=== PATIENT | male | born 1980 | race Caucasian/White ===

== ENCOUNTER → 2023-07-10 13:59 | Outpatient (REF) | payer BC, SELFPAY | LOC: RAD 13:59 | PROVIDERS: ATTENDING PHYSICIAN Surgery; FAMILY PHYSICIAN Family Medicine | DX: N20.0 Calculus of kidney (principal) | CPT/HCPCS: 74018 ==

== ENCOUNTER 2024-07-19 23:24 | Inpatient (IN) | payer OTHER, SELFPAY ==
[2024-07-19 14:52] VITALS: BP 142/86
[2024-07-19 15:22] LABS: % Basophils 0.5 % (0-2); % Eosinophils 1.6 % (0-6); % Immature Granulocytes 0.3 % (0-0.5); % Lymphocytes 10.4 % (20.5-51.1); % Monocytes 6.5 % (1.7-9.3); % Neutrophils 80.7 % (42.2-75.2); Absolute Basophils 0.1 10^3/uL (0-0.2); Absolute Eosinophils 0.3 10^3/uL (0-0.7); Absolute Immature Granulocytes 0.1 10^3/uL (0-0.05); Absolute Lymphocytes 1.6 10^3/uL (1.2-3.4); Absolute Neutrophils 12.4 10^3/uL (1.4-6.5); Hematocrit 46.8 % (39.0-52.0); Hemoglobin 15.9 g/dL (13.0-18.0); Mean Corpuscular Hgb 30.9 pg (27.0-31.0); Mean Corpuscular Volume 91.1 fL (80.0-94.0); Mean Platelet Volume 11.1 fL (7.4-10.4); Nucleated Red Blood Cells % 0 % (-); Platelet Count 384 10^3/uL (130-400); Red Blood Cell Count 5.14 10^6/uL (4.70-6.10); Red Cell Dist. Width 12.1 % (11.5-14.5); White Blood Cell Count 15.4 10^3/uL (4.8-10.8)
[2024-07-19 15:35] LABS: ALT (SGPT) 24 U/L (0-50); AST (SGOT) 26 U/L (17-59); Albumin 4.6 g/dl (3.5-5.0); Alkaline Phosphatase 65 U/L (38-126); Blood Urea Nitrogen 6 mg/dl (9-20); Calcium 10.2 mg/dl (8.4-10.2); Carbon Dioxide 25 mmol/L (22-30); Chloride 102 mmol/L (98-107); Glucose 126 mg/dl (70-99); Potassium 4.2 mmol/L (3.5-5.1); Sodium 138 mmol/L (135-145); Total Bilirubin 0.7 mg/dl (0.2-1.3); eGFR > 60.00
[2024-07-19 15:37] LABS: Lipase 580 U/L (23-300)
[2024-07-19 17:58] VITALS: BP 123/79
--- NOTE | 2024-07-19 19:29 | ED.GENMED ---
History of Present Illness
General
Chief Complaint: Abdominal Symptoms
Source: patient
Exam Limitations: none
Time Seen by Provider: 07/19/24 18:22
History of Present Illness
History of Present Illness:
43-year-old male with complaints of abdominal pain mostly left lower quadrant with watery diarrhea mucousy stools and occasionally bloody stools. Outpatient stool culture O&P showed a nonserious parasite that his physician felt was unlikely to be
an issue. He was however started on metronidazole. He is scheduled for colonoscopy next week. Symptoms have progressed however. No recent antibiotics.
Past History
Past History
ED Past Medical History: HTN, Hypercholesterolemia, IDDM and Other (Microscopic colitis)
ED Past Surgical History: None
Review of Systems
Review of Systems
All Other Systems: Not applicable
Constitutional: Denies fever or chills
: Reports no symptoms
Phy Exam
Physical Exam
Physical Exam:
GENERAL: Alert and oriented in no apparent distress
EYE: Orbits normal.
NECK: Supple
ENT: Pharynx without erythema
CARDIAC: Regular rate and rhythm without any obvious murmurs.
LUNGS: Clear breath sounds,normal
ABDOMEN: Soft, mild reproducible left lower quadrant tenderness. No rebound or guarding no mass or hernia
NEUROLOGICAL: Alert and oriented , grossly non-focal
SKIN: Warm and dry, no rash or lesion, no discoloration, skin intact.
MUSCULOSKELETAL: No edema,no deformity.Good color
PSYCH: Normal and appropriate interaction.
Course
Orders/Labs/Results
Orders:
Orders
07/19/24 15:03
Complete Blood Count/With Diff Urgent
Comprehensive Metabolic Panel Urgent
Lipase Urgent
07/19/24 19:24
CT Abd/Pel (IV only)-DH only Urgent
Comment:
Reason For Exam: llq pain. bloody stool
IV Insert/Care/Rem.- Treatment PRN
0.9% Sodium Chloride 1000 ml [Nss] 1,000 ml IV BOLUS
07/19/24 19:50
Ova & Parasites Giardia/Crypto AG [Giardia/Cryptosporidium Ag] Urgent
MARQUIS Source: Feces/Stool
Specimen Description:
Date Specimen was Collected: 07/19/24
Time Specimen was Collected: 19:44
STOOL [C difficile Antigen & Toxins] Urgent
MARQU[facility] Source: Feces/Stool
Specimen Description:
Date Specimen was Collected: 07/19/24
Time Specimen was Collected: 19:44
Stool Culture Urgent
MARQU[facility] Source: Feces/Stool
Specimen Description:
Date Specimen was Collected: 07/19/24
Time Specimen was Collected: 19:44
07/19/24 22:06
Zosyn 3.375 grams IVPB NOW Piperacillin/Tazo 3.375 Gram [Zosyn] 3.375 gram in 50 ml IV NOW
Abnormal Lab Results
07/19/24
15:03
WBC 15.4 H 10^3/uL
(4.8-10.8)
MPV 11.1 H fL
(7.4-10.4)
Abs Immat Gran (auto) 0.1 H 10^3/uL
(0-0.05)
Absolute Neuts (auto) 12.4 H 10^3/uL
(1.4-6.5)
Absolute Monos (auto) 1.0 H 10^3/uL
(0.1-0.6)
Neutrophils % 80.7 H %
(42.2-75.2)
Lymphocytes % 10.4 L %
(20.5-51.1)
BUN 6 L mg/dl
(9-20)
Glucose 126 H mg/dl
(70-99)
Lipase 580 H U/L
(23-300)
07/19/24 15:03
07/19/24 15:03
Vital Signs
Initial and Last Documented VS:
Initial Vital Signs
Temp Pulse Resp BP Pulse Ox
98.4 F 110 16 142/86 98
07/19/24 14:52 07/19/24 14:52 07/19/24 14:52 07/19/24 14:52 07/19/24 14:52
Last Documented Vital Signs
Temp Pulse Resp BP Pulse Ox
98.5 F 99 18 123/79 98
07/19/24 20:10 07/19/24 17:58 07/19/24 20:10 07/19/24 17:58 07/19/24 17:58
MDM/Problems Addressed
Differential Diagnosis Includes:
Patient describing colitis. Workup in progress. Will resend stool and stool O&P. CT scan pending.
*Radiology
Radiology exam reviewed: radiology read reviewed (Moderate colitis)
*Pulse Oximetry
Patient hypoxic: no
*Critical Care Note
Total Time (30-74mins, 75-104mins- exclusive of procedures): Not Applicable
Update Note
Update Note:
Copy of CT report given to patient
Moderate diffuse colitis. Not responding to Flagyl as an outpatient. Between pain discomfort white count diffuse colitis will admit. Discussed with GI and hospitalist
ED Attending Note
-
Portions of this chart may have been created with voice recognition software.� Occasional wrong word or��sound alike� substitutions may have occurred due to the inherent limitations of voice recognition software.
Discharge Plan
Departure
Patient Disposition: Admit
Date of Disposition: 07/19/24
Time of Disposition: 22:07
Presentation/result/management discussed w/ accepting /: Bala
Discharge Problem:
Moderate colitis, Bloody stools
Referrals:
Bobby Williamson PA [Family Provider] -
Interventions
Interventions:
*Risk Screen - Suicide Last Done: 07/19/24 14:52
*Neglect/Abuse Screening Last Done: 07/19/24 14:52
[facility]-Plfpx[facility] Assessment Last Done: 07/19/24 19:55
Discharge Date and Time
Print Language: BULGARIAN
[2024-07-19] MEDS: NSS 1000 IV (19:48)
[2024-07-19] MEDS: ZOSYN 50 IV (22:28)
[2024-07-19 22:30] VITALS: BP 112/84
[2024-07-19 22:31] VITALS: BMI 25.9
[2024-07-19 22:32] VITALS: BP 112/84
--- NOTE | 2024-07-19 22:44 | HPS.HSE ---
Family Physician
-
Family Physician: SHEREE Michael
Chief Complaint
-
acute left lower quadrant pain with watery diarrhea
History of Present Illness
43M HX Microscopic colitis, IDDM, HTN, Hypercholesterolemia seen at ER:
- acute left lower quadrant pain with watery diarrhea
- mucous stools and occasionally bloody stools.
- Outpatient stool culture O&P showed a nonserious parasite that his physician felt was unlikely to be an issue.
- He was however started on metronidazole.
- He is scheduled for colonoscopy next week.
- Symptoms have progressed however.
- No recent antibiotics.
Medical History
Past Medical History
Past Medical History: Reports HTN, Hypercholesterolemia, IDDM and Other (Microscopic colitis)
Past Surgical History: Reports Other
Social History
Tobacco: Non-smoker
Alcohol: None
Family History
Family History: Not pertinent
Allergies / Home Medications
Allergies reflects when Allergies were last updated in [facility].
Home Medications with original date entered in [facility]
Allergy/Medication List:
Allergies
Allergy/AdvReac Type Severity Reaction Status Date / Time
No Known Allergies Allergy Verified 07/19/24 14:55
Review of Systems
-
Constitutional: Reports No Symptoms
EENT: Reports No Symptoms
Respiratory: Reports No Symptoms
Cardiac: Reports No Symptoms
Abdomen/GI: Reports See HPI, Abdominal Pain, Diarrhea and Bloody Stools
: Reports No Symptoms
Musculoskeletal: Reports No Symptoms
Skin: Reports No Symptoms
Neurological: Reports No Symptoms
Endocrine: Reports No Symptoms
Hematologic/Lymphatic: Reports No Symptoms
Psych: Reports No Symptoms
Physical Exam
Vital Signs
Vital Signs
Temp Pulse Resp BP Pulse Ox
98.5 F 94 18 112/84 96
07/19/24 20:10 07/19/24 22:32 07/19/24 22:32 07/19/24 22:32 07/19/24 22:32
Physical Exam
General: Well Developed, Well Nourished and No Apparent Distress
HEENT: NormoCephalic, Moist mucous membranes and Atraumatic
Respiratory: Clear
Cardiac: S1/S2 and Regular Rhythm; No Murmur or Rub
GI: Tender (RLQ )
Rectal: Deferred by Provider
Musculoskeletal: No Clubbing, No Cyanosis and No Edema
Skin: No Rash
Neuro: Nonfocal/grossly intact
Laboratory Results
-
07/19/24 15:03
07/19/24 15:03
Laboratory Results
Total Bilirubin 0.7 mg/dl (0.2-1.3) 07/19/24 15:03
AST 26 U/L (17-59) 07/19/24 15:03
ALT 24 U/L (0-50) 07/19/24 15:03
Alkaline Phosphatase 65 U/L (38-126) 07/19/24 15:03
Lipase 580 U/L (23-300) H 07/19/24 15:03
Data Reviewed
-
CT Scan: Report Reviewed by me
Lab Data: Labs Reviewed by me
Impression/Plan
-
Selected Entries
07/19/24
14:52
Temp 98.4 F
Pulse 110
Resp Rate 16
Blood pressure 142/86
SaO2 98
Oxygen Mode of Delivery Room air
Labs
07/19/24
15:03
WBC 15.4 H
BUN 6 L
Creatinine 0.7
eGFR > 60.00
Glucose 126 H
Lipase [address]/Pel (IV only)
- Moderate diffuse colonic wall thickening, contiguous involvement from the rectum through the inferior right colon. Findings are compatible with colitis. Main differential considerations of infectious colitis versus inflammatory bowel
disease/ulcerative colitis. Of note, this appears new compared to examination June 03, 2023.
- Prominent mesenteric lymph nodes, which are likely reactive.
- 7 mm calcification in the anterolateral left mid kidney, stable, and could represent a dystrophic parenchymal calcification versus a nephrolith. Small 1-2 mm nephrolith in the lower pole the right kidney.
- Focal area of increased density involving the superficial subcutaneous soft tissues of the right anterolateral upper pelvic wall, which appears stable from previous examination. Stability is reassuring that this is benign, possibly an area of
scarring or chronic inflammation. Please correlate with any clinical findings in this region and consider continued clinical follow-up.
NO PRIO hospitalist admission:
ASSESSMENT & PLAN
Pending Rx reconciliation
Colitis: infectious vs. IBD
Associated hematochezia: Hgb 15.9
Hemodynamically stable
HX Microscopic colitis
- Stool for C diff , Ova and parasites
- Clear diet
- Empiric IV Zosyn
- IV NS
- IV dilaudid PRN for mod - severe pain, hold for sedation
- GI consult
IDDM
- add ISS
- Pending Rx reconciliation
Benign HTN
- stable
- Pending Rx reconciliation
HLD
- c/w [facility] Med
DVT Px: SCD
Full code
IP MS
[2024-07-19 23:00] VITALS: BP 123/78
[2024-07-20] VITALS: BP 113/75
[2024-07-20] MEDS: MELATONIN 5 MG PO ×2 (00:07→22:01)
[2024-07-20] MEDS: NSS 1000 IV ×2 (00:08→12:51)
[2024-07-20] MEDS: ZOSYN 50 IV ×4 (04:53→21:48)
[2024-07-20 05:26] LABS: Hematocrit 40.3 % (39.0-52.0); Hemoglobin 13.6 g/dL (13.0-18.0); Mean Corp Hgb Conc. 33.7 g/dL (33.0-37.0); Mean Corpuscular Hgb 30.9 pg (27.0-31.0); Mean Corpuscular Volume 91.6 fL (80.0-94.0); Mean Platelet Volume 10.8 fL (7.4-10.4); Platelet Count 320 10^3/uL (130-400); Red Cell Dist. Width 12.1 % (11.5-14.5); White Blood Cell Count 10.9 10^3/uL (4.8-10.8)
[2024-07-20 05:45] LABS: Blood Urea Nitrogen 5 mg/dl (9-20); Carbon Dioxide 19 mmol/L (22-30); Chloride 103 mmol/L (98-107); Estimated Creatinine Clearance > 125 ml/min; Glucose 191 mg/dl (70-99); Potassium 4.2 mmol/L (3.5-5.1); Sodium 135 mmol/L (135-145); eGFR > 60.00
[2024-07-20] MEDS: NOVOLOG FLEXPEN-LOW RESISTANCE SC ×2 (07:00→18:01)
[2024-07-20 09:17] LABS: Glycohemoglobin (HgbA1c) 7.8 % (4.0-5.6)
[2024-07-20 09:54] LABS: Glucose - Point of Care 172 mg/dl (70-99)
--- NOTE | 2024-07-20 10:17 | W.PN.HOSP.TC ---
Today's Communication/Plan
-
Clear liquids. NPO from midnight for flex sigmoidoscopy tomorrow
Assessment / Plan
Assessment / Plan
43-year-old male with history of microscopic colitis, insulin-dependent diabetes mellitus (type I), hypertension, hyperlipidemia, who presents with left lower quadrant abdominal pain, with mucoid/bloody diarrhea
Colitis: infectious vs inflammatory
CT abd/pel: Moderate diffuse colonic wall thickening, contiguous involvement from the rectum through the inferior right colon. Findings are compatible with colitis.
Acute left lower quadrant pain
with mucoid and occasionally bloody diarrhea. symptoms worsened since onset in early May.
outpatient stool studies which showed Endolimax arlene trophozoites. Benign organism and does not explain symptoms.
- He is scheduled for colonoscopy next week.
- Reports improvement in abdominal pain today. Continue clear liquid diet
- Appreciate GI. NPO from midnight for flexible sigmoidoscopy
-Will check stool calprotectin, CRP
Other problems:
Type 1 Diabetes mellitus: Pt on clear liquids. Will start lantus 20, SSI
Essential hypertension: Continue Lisinopril
Hyperlipidemia: Continue Rosuvastatin
Anticipated Discharge: 24 - 48 hours
Subjective/Interval History
-
Date of Service: July 20, 2024
No acute events overnight, currently without abdominal pain, ongoing loose stool
Family history of thyroid disorder
History of eating oysters shortly before symptoms began in May.
Objective Data
-
Labs:
Laboratory Results
07/20/24
04:55
WBC 10.9 H
Hgb 13.6
Hct 40.3
Plt Count 320
Sodium 135
Potassium 4.2
Chloride 103
Carbon Dioxide 19 L
BUN 5 L
Creatinine 0.6 L
Glucose 191 H
Calcium 9.0
Vital Signs:
Vital Signs
Temp Pulse Resp BP Pulse Ox
98.5 F 94 18 113/75 96
07/20/24 04:26 07/19/24 22:32 07/19/24 22:32 07/20/24 00:00 07/20/24 04:00
Review of Systems
-
History Source: Patient
Respiratory: Denies Trouble Breathing
Abdomen/GI: Reports Diarrhea; Denies Abdominal Pain, Nausea, Vomiting or Constipated
Physical Exam
-
General: Well Developed, Well Nourished, No Apparent Distress and Comfortable; Negative Respiratory Distress
HEENT: Normocephalic, Atraumatic and Moist Mucous Membranes
Respiratory: Clear to Auscultation and Non Labored Respirations; Negative Wheezes, Rales, Rhonchi or Crackles
Cardiac: Regular Rhythm and S1/S2; Negative Murmur, Rub or Calf Tenderness
GI: Soft, Nontender, Nondistended and Normal Bowel Sounds
Musculoskeletal: No Clubbing, No Cyanosis and No Edema
Skin: Warm and Dry; Negative Rash
Neuro: Awake, Alert and Oriented
Psych: Calm
--- NOTE | 2024-07-20 10:58 | W.PN.UPDATE ---
Update Note
Progress Note Update
Seen and examined by me independently in collaboration with the medical technologist chemistry.
Lab data and imaging data reviewed.
Addendum as below :
Patient with a history of microscopic colitis diagnosis many years ago with no chronicity presents with ongoing GI symptoms which started in May this year. Was put on a trial of Flagyl last week with some improvement but he has recurrence of
symptoms again of diarrhea and lower abdominal discomfort. No nausea vomiting. No obvious fevers.
Before the start of his symptoms in May 1 week he had oysters and he went on whey protein and a part of that he cannot think of anything else is a trigger.
Your outpatient stool studies which showed Endolimax arlene trophozoites. He was given the benefit of doubt and was treated with Flagyl here in the ER some improvement in symptoms last week but then he had recurrence of symptoms over the weekend so
he came into the hospital.
He is already feeling bit better with his abdomen discomfort. He is diagnosed with pancolitis and put on Zosyn since admission yesterday.
Continue with clear liquid diet and Zosyn. Await GI input.
Will discuss with ID regarding the significance of the tophus diet isolation in his stools.
Patient a type 1 diabetes mellitus-will start Lantus at half the dose of 20 units and then use a sliding scale. He normally uses Tresiba 40 units at at bedtime and 15 units of Humalog with meals.
Discussed with ID
Discussed with at bedside
Reviewed the stool culture report from [facility]
Total time spent on today's encounter was 52 minutes which included time spent in counseling the patient/family regarding diagnosis and treatment plan as listed above, goals of care, and symptom management. Case was discussed with nursing staff,
specialists, and care coordinators/case management. All labs and imaging personally reviewed by me. Remainder the time spent in detailed review of previous records, lab data, imaging, and other medical provider documentation.
[2024-07-20 12:36] LABS: Glucose - Point of Care 194 mg/dl (70-99)
--- NOTE | 2024-07-20 12:37 | CON.GI ---
Addendum entered and electronically signed by Jami Daniels DO 07/20/24 15:05:
I saw and evaluated the patient. I reviewed the resident�s note and agree with findings and plan as documented in the resident�s note.
Klaus is a 43-year-old male with past medical history of hyperlipidemia, type 1 diabetes and reported diagnosis of microscopic colitis about 15 years ago who presents with worsening diarrhea and left lower quadrant abdominal pain. Of note he
recently establish care with me, seen in the office on 07/12/2024 for recurrence of diarrhea starting in early May with persistence, including nocturnal episodes and admitted to frequent blood in the stool but felt it was more likely due to
hemorrhoids. At his recent visit he felt like his symptoms had somewhat improved with avoiding fibrous foods as well as spicy foods. He reports that he was in [place] for a work trip and had a very spicy meal on Friday after which she had
significant diarrhea, mucus in the stool as well as blood. Due to worsening left lower quadrant discomfort and persistence of diarrhea presented to the ER for further evaluation. Labs on arrival significant for elevated white blood cell count of
15.4, hemoglobin 15.9, stool studies pending however recent infectious stool studies performed as an outpatient were negative except for stool O&P positive for endolimax arlene. He had just started treatment with flagyl after his recent appointment,
plans for colonoscopy next week. Repeat labs this morning showed normalization of WBC count, 10.9. Lipase elevated to 580, no RUQ abdominal pain and normal pancreas on imaging.
CT scan showed moderate diffuse colonic wall thickening, contiguous involvement from the rectum through the inferior right colon compatible with colitis with differential considerations of infectious colitis versus inflammatory bowel
disease/ulcerative colitis.
The chronicity of his symptoms in addition to blood in his stool and CT findings are all suggestive of inflammatory bowel disease.
Plan:
Clear liquids
NPO PMN for Flex Sig tomorrow with Dr. Mckenna
Check fecal calprotectin
Check CRP
Original Note:
Consultation
-
Date/Time Consultation Requested: 07/19/24
Date/Time Consultation Performed: 07/20/24
Requesting Provider: Simone Salinas MD
Performing Provider: Adina Waters MD
Reason for Consultation: Abdominal pain with diarrhea
Medical History
Chief Complaint / HPI
Chief Complaint: Abdominal pain with diarrhea
History of Present Illness:
The patient is a 43-year-old male with a past medical history of type 1 diabetes mellitus, HTN, HL and microscopic colitis who presented to ER with ongoing abdominal pain/discomfort with diarrhea. Patient reports having abdominal discomfort and a
few episodes of diarrhea back 2006 for which he had a colonoscopy and was diagnosed with microscopic colitis. Following he had a second colonoscopy in 2011 which was not significant, also he he was scheduled for another colonoscopy next week with
Dr. Daniels. Patient states he started have abdominal discomfort and diarrhea since the beginning of the May, assuming it can be related to taking protein powder dose or eating oysters. His diarrhea gradually got worsen and and it
started to be bloody at the end of the May. He had some improvements with his symptoms for a while, but his symptoms restarted and he needed to visit his PCP. He was obtained to stool culture and one of them showed Endolimax arlene
trophozoites for which he was started on metronidazole on last Friday with some improvement. But, the patient`symptoms started to get worse and on Friday, reporting having diarrhea likely every hour with lower abdominal discomfort. At admission,
his abdominal CT with only IV contrast showed moderate diffuse colonic wall thickening, contiguous involvement from the rectum through the inferior right colon compatible with colitis with differential considerations of infectious colitis versus
inflammatory bowel disease/ulcerative colitis. His lab results was significant for elevated WBC to 15.4, normal hemoglobin level to 15.9 and normal LFT. Stool studies was obtained and pending. The patient was started on Zosyn after admission
resulting improvement with his abdominal discomfort. The patient endorses lower abdominal discomfort, GERD once a while. The patient denies hematemesis, vomiting, dysphagia, odynophagia, constipation, rectal pain or sick contact. Patient denies
arthritis, joint pain, muscle/back stiffness on the morning, uveitis, ulcers in the mouth, rashes, family history of bowel diseases.
Past Medical History
Past Medical History: HTN, Hypercholesterolemia, IDDM (Type 1 diabetes mellitus) and Other (Microscopic colitis)
Social History
Tobacco: Non-Smoker
Alcohol: None
Drug: None
Family History
Family History: Reviewed & Not Pertinent (No family history of inflammatory bowel diseases or colon cancer)
Allergies / Home Medications
Allergy/AdvReac Type Severity Reaction Status Date / Time
No Known Allergies Allergy Verified 07/19/24 14:55
�Medication �Instructions �Recorded
insulin degludec 200 unit/mL (3 40 unit SC HS 07/20/24
mL) subcutaneous pen (Tresiba
FlexTouch U-200 insulin)
insulin lispro 100 unit/mL 11 sliding scale dose SC AC 07/20/24
subcutaneous pen (Humalog KwikPen
(U-100) Insulin)
lisinopril 20 mg tablet 20 mg PO DAILY 07/20/24
loperamide 2 mg tablet 2 mg PO Q4HPRN PRN diarrhea 07/20/24
metronidazole 500 mg tablet 500 mg PO TID 07/20/24
rosuvastatin 5 mg tablet (Crestor) 5 mg PO DAILY 07/20/24
Review of Systems
-
History Source: Patient
Constitutional: Reports No Symptoms
EENT: Reports No Symptoms
Respiratory: Reports No Symptoms
Cardiac: Reports No Symptoms
Abdomen/GI: Reports Diarrhea and Other (Abdominal discomfort)
Musculoskeletal: Reports No Symptoms
Skin: Reports No Symptoms
Neurological: Reports No Symptoms
Vital Signs
Temp Pulse Resp BP Pulse Ox
98.5 F 94 18 113/75 96
07/20/24 04:26 07/19/24 22:32 07/19/24 22:32 07/20/24 00:00 07/20/24 04:00
Physical Exam
Exam
General: Well Developed, Well Nourished, No Apparent Distress and Comfortable
HEENT: Normocephalic
Respiratory: Clear
Cardiac: S1/S2 and Regular Rhythm
GI: Soft, Non Distended, Normal Bowel Sounds and Tender (Mild lower abdominal discomfort to palpation)
Musculoskeletal: No Clubbing, No Cyanosis and No Edema
Skin: Warm
Neuro: Awake, Alert, Oriented, AO x 3 and Nonfocal/Grossly Intact
Psych: Calm
Results
WBC 10.9 10^3/uL (4.8-10.8) H 07/20/24 04:55
Hgb 13.6 g/dL (13.0-18.0) 07/20/24 04:55
Hct 40.3 % (39.0-52.0) 07/20/24 04:55
MCV 91.6 fL (80.0-94.0) 07/20/24 04:55
Plt Count 320 10^3/uL (130-400) 07/20/24 04:55
Absolute Neuts (auto) 12.4 10^3/uL (1.4-6.5) H 07/19/24 15:03
Sodium 135 mmol/L (135-145) 07/20/24 04:55
Potassium 4.2 mmol/L (3.5-5.1) 07/20/24 04:55
Chloride 103 mmol/L (98-107) 07/20/24 04:55
Carbon Dioxide 19 mmol/L (22-30) L 07/20/24 04:55
BUN 5 mg/dl (9-20) L 07/20/24 04:55
Creatinine 0.6 mg/dL (0.7-1.3) L 07/20/24 04:55
Calcium 9.0 mg/dl (8.4-10.2) 07/20/24 04:55
Total Bilirubin 0.7 mg/dl (0.2-1.3) 07/19/24 15:03
AST 26 U/L (17-59) 07/19/24 15:03
ALT 24 U/L (0-50) 07/19/24 15:03
Alkaline Phosphatase 65 U/L (38-126) 07/19/24 15:03
Lipase 580 U/L (23-300) H 07/19/24 15:03
Diagnostic Image Results:
ABD CT 07/19/24
IMPRESSION: Moderate diffuse colonic wall thickening, contiguous involvement from the rectum through the inferior right colon. Findings are compatible with colitis. Main differential considerations of infectious colitis versus inflammatory bowel
disease/ulcerative colitis. Of note, this appears new compared to examination June 03, 2023.
Prominent mesenteric lymph nodes, which are likely reactive.
7 mm calcification in the anterolateral left mid kidney, stable, and could represent a dystrophic parenchymal calcification versus a nephrolith. Small 1-2 mm nephrolith in the lower pole the right kidney.
Focal area of increased density involving the superficial subcutaneous soft tissues of the right anterolateral upper pelvic wall, which appears stable from previous examination. Stability is reassuring that this is benign, possibly an area of
scarring or chronic inflammation. Please correlate with any clinical findings in this region and consider continued clinical follow-up.
Prior GI Procedures:
EGD: None by patient report
Colonoscopy: Per Patient report, He had 2 colonoscopy in 2006 and in 2011.
In 2006, His colonoscopy was noted for microscopic colitis
In 2011, Results were not significant
Assessment / Plan
-
Assessment
Mr Irwin is a 43-year-old male with a PMH of IDDM,, HTN, HL and microscopic colitis who presented to ER for an evaluation of his ongoing abdominal pain/discomfort with bloody diarrhea. Patient reports having abdominal discomfort and a few
episodes of diarrhea back 2006 for which he had a colonoscopy and was diagnosed with microscopic colitis. Following he had a second colonoscopy in 2011 which was not significant, recently he was scheduled for another colonoscopy next week with
Frances. Patient reports having abdominal discomfort and diarrhea since the beginning of the May, assuming it can be related to taking protein powder dose or eating oysters. His diarrhea gradually got worsen and and it started to be
bloody at the end of the May. He was obtained stool culture by his PCP reporting Endolimax arlene trophozoites for which he was started on metronidazole on last Friday with some improvement. But, the patient`symptoms started to get worse on
Friday, reporting having diarrhea likely every hour with lower abdominal discomfort. At admission, his abdominal CT with only IV contrast showed moderate diffuse colonic wall thickening, contiguous involvement from the rectum through the inferior
right colon compatible with colitis with differential considerations of infectious colitis versus inflammatory bowel disease/ulcerative colitis. His lab results was significant for elevated WBC to 15.4, normal hemoglobin level to 15.9 and normal
LFT. Stool studies was obtained and pending. The patient was started on Zosyn after admission resulting improvement with his abdominal discomfort. The patient endorses lower abdominal discomfort, GERD once a while. Reports last bowel movement
yesterday brown liquid loose. The patient denies hematemesis, vomiting, dysphagia, odynophagia, constipation, rectal pain or sick contact. Patient denies fever, chills, arthritis, joint pain, muscle/back stiffness on the morning, uveitis, ulcers
in the mouth, rashes, family history of bowel diseases.
Impression
Colitis
Type 1 diabetes mellitus
Hypertension
Hyperlipidemia
Plan
#Colitis likely secondary to inflammatory vs infectious
-Abdominal CT: moderate diffuse colonic wall thickening, contiguous involvement from the rectum through the inferior right colon compatible with colitis with differential considerations of infectious colitis versus inflammatory bowel
disease/ulcerative colitis.
-History of microscopic colitis
-Improvement with diarrhea and abdominal discomfort after started on Zosyn
-Continue supportive care
-Stool cultures pending
-Cryptosporidium/Giardia/C. difficile negative
-Vibrio stool culture was ordered
-Continue clear diet
-Eventually will need a colonoscopy vs sigmoidoscopy to be assessed for IBD in 2 to 4 weeks
-
-
Thank you for consultation and allowing me to participate in the patient's care. Please call the special technical operations officer GI physician during the after hours with any questions or concerns.
[2024-07-20] MEDS: LANTUS 0.2 UNITS SC (12:45)
[2024-07-20] MEDS: NOVOLOG FLEXPEN-LOW RESISTANCE 1 UNITS SC (12:46)
[2024-07-20 16:14] VITALS: BMI 25.7
[2024-07-20 16:15] VITALS: BP 119/79
[2024-07-20 17:53] LABS: Glucose - Point of Care 133 mg/dl (70-99)
[2024-07-20 22:02] LABS: Glucose - Point of Care 88 mg/dl (70-99)
[2024-07-21] VITALS (8 sets, daily range): BP systolic 20–142; BP diastolic 77–89; BMI 26.1
[2024-07-21] MEDS: ZOSYN 50 IV ×2 (03:07→09:39)
[2024-07-21] MEDS: NSS 1000 IV ×2 (03:08→09:47)
[2024-07-21 06:16] LABS: Glucose - Point of Care 90 mg/dl (70-99)
[2024-07-21 07:21] LABS: Hematocrit 40.1 % (39.0-52.0); Hemoglobin 13.8 g/dL (13.0-18.0); Mean Corp Hgb Conc. 34.4 g/dL (33.0-37.0); Mean Corpuscular Hgb 31.4 pg (27.0-31.0); Mean Corpuscular Volume 91.3 fL (80.0-94.0); Mean Platelet Volume 10.6 fL (7.4-10.4); Platelet Count 299 10^3/uL (130-400); Red Blood Cell Count 4.39 10^6/uL (4.70-6.10); Red Cell Dist. Width 12.1 % (11.5-14.5); White Blood Cell Count 8.1 10^3/uL (4.8-10.8)
[2024-07-21 07:48] LABS: Blood Urea Nitrogen 5 mg/dl (9-20); Calcium 8.7 mg/dl (8.4-10.2); Carbon Dioxide 23 mmol/L (22-30); Chloride 103 mmol/L (98-107); Estimated Creatinine Clearance > 125 ml/min; Glucose 90 mg/dl (70-99); Magnesium 1.7 mg/dl (1.6-2.3); Potassium 3.8 mmol/L (3.5-5.1); Sodium 137 mmol/L (135-145); eGFR > 60.00
[2024-07-21] MEDS: LANTUS SC (08:23)
--- NOTE | 2024-07-21 10:01 | PN.CDI ---
CDI
- -
CDI:
Physician Documentation Request
Admit Date: 07/19/24 23:24
Dear Doctor Lou,
Please review the following and provide your response in the progress notes.
Clinical Indicators:
PN, 07/20
#Colitis: infectious vs inflammatory
PN, 07/20
#...diagnosed with pancolitis and put on Zosyn since admission yesterday.
Initial VS: 07/19
Selected Entries
07/19/24
14:52
Temp 98.4 F
Pulse 110
Resp Rate 16
Blood pressure 142/86
Laboratory Tests
07/19/24 07/20/24 07/21/24
15:03 04:55 06:57
WBC 15.4 H 10.9 H 8.1
Based on the above and your clinical assessment, please clarify which of the following most accurately describes the status of the patient's infection:
Sepsis, POA
Sepsis, POA, now resolved
Localized Infection Only, Without Systemic Illness
- indicate the site/source, such as UTI, pneumonia et
Other(please specify)
Sepsis
- Systemic manifestations of infection, with 2 or more SIRS criteria which include:
- Fever >100.4 degrees F or hypothermia < 96.8 degrees F
- Leukocytosis - WBC > 12,000 or leukopenia - WBC < 4,000 or > 10% bands
- Tachycardia > 90 beats per minute
- Tachypnea - RR > 20 breaths per minute or PaCO2 , 32mmHg
Source: Merck Manual 2013
- Indicate the known or suspected underlying infection, such as infectious colitis, pneumonia or cellulitis
- Indicate if a suspected bacterial infection of unknown source
Use of terms such as suspected, likely, concern for, or probable (associated with a specific diagnosis that is being evaluated, monitored, or treated as if it exists) are acceptable and can be coded in the inpatient setting, when documented at the
time of discharge.
Thank you,
Agata Leyva RN BSN CCDS
CDI Specialist
Please contact via tiger text
Please use your independent medical judgment in providing your response.
--- NOTE | 2024-07-21 10:31 | CM ---
Patient seen at bedside with present. Patient very eager to go to procedure and wants to go home. Patient confirmed that he lives in a 3 story home with many stairs. Patient PCP is Dr. Williamson and he uses the [facility] in [place]. Patient plan is for
discharge home with no needs anticipated. plans to transport home. CM will continue to follow for discharge planning needs.
Plan; home with no needs
--- NOTE | 2024-07-21 11:11 | W.PN.UPDATE ---
Update Note
Progress Note Update
Colonoscopy done
Erythema, shallow ulceration, pseudopolyps in descending, rectosigmoid- bx'd
Decreased vascularity transverse, ascending, cecum- bx'd
Normal ileum- bx'd
Diverticulosis
REC:
Low res diet
Start Entocort 9mg daily and taper after d/c per f/u with GI depending on response
Await path. Likely UC
[2024-07-21] MEDS: ENTOCORT EC 9 MG PO (11:57)
[2024-07-21 12:27] LABS: Glucose - Point of Care 125 mg/dl (70-99)
--- NOTE | 2024-07-21 13:38 | W.PN.UPDATE ---
Addendum entered and electronically signed by Shmuel Rodriguez MD 07/21/24 16:42:
Pancolitis without sepsis
Original Note:
Update Note
Progress Note Update
Seen and examined by me independently in collaboration with the medical planner.
Lab data and imaging data reviewed.
Addendum as below :
Patient felt improved since hospitalization. No nausea vomiting. Tolerating diet. Improving abdominal discomfort. No fever or chills.
Normalized white count.
Colonoscopy
Erythema, shallow ulceration, pseudopolyps in descending, rectosigmoid- bx'd
Decreased vascularity transverse, ascending, cecum- bx'd
Normal ileum- bx'd
Diverticulosis
Discussed with GI concern for IBD. Advised Entocort 9 mg daily and follow-up with GI for tapering.
Biopsies are pending.
In view of improvement with antibiotics and normalization of white count will finish a 7-day course of Augmentin as an outpatient.
--- NOTE | 2024-07-21 16:19 | W.PN.HOSP.TC ---
Today's Communication/Plan
-
DC planning
Assessment / Plan
Assessment / Plan
43-year-old male with history of microscopic colitis, insulin-dependent diabetes mellitus (type I), hypertension, hyperlipidemia, who presents with left lower quadrant abdominal pain, with mucoid/bloody diarrhea
Colitis:
Concern for ulcerative colitis. CRP elevated
CT abd/pel: Moderate diffuse colonic wall thickening, contiguous involvement from the rectum through the inferior right colon. Findings are compatible with colitis.
Acute left lower quadrant pain on presentation. significantly improved
outpatient stool studies which showed Endolimax arlene trophozoites. Benign organism and does not explain symptoms.
s/p Colonoscopy today:
Diffuse moderate inflammation was found in the recto-sigmoid colon and in the descending colon secondary to ulcerative colitis. Biopsied.
Diffuse mild inflammation was found in the transverse colon, in the ascending colon and in the cecum. Biopsied.
Diverticulosis in the sigmoid colon.
- Appreciate GI. Await pathology results. Start Budesonide 9mg PO daily. Outpt GI follow up
Other problems:
Type 1 Diabetes mellitus: Pt on clear liquids. DC on regular insulin schedule
Essential hypertension: Continue Lisinopril
Hyperlipidemia: Continue Rosuvastatin
Anticipated Discharge: Today
Subjective/Interval History
-
Date of Service: July 21, 2024
Objective Data
-
Labs:
Laboratory Results
07/21/24
06:57
WBC 8.1
Hgb 13.8
Hct 40.1
Plt Count 299
Sodium 137
Potassium 3.8
Chloride 103
Carbon Dioxide 23
BUN 5 L
Creatinine 0.8
Glucose 90
Calcium 8.7
Vital Signs:
Vital Signs
Temp Pulse Resp BP Pulse Ox
97.6 F 92 16 134/89 98
07/21/24 11:54 07/21/24 11:54 07/21/24 11:54 07/21/24 11:54 07/21/24 11:54
I&O
07/20/24 07/21/24 07/22/24
06:59 06:59 06:59
Intake Total 2479
Balance 2479
Review of Systems
-
History Source: Patient
Constitutional: Denies Fever or No Appetite
Respiratory: Denies Trouble Breathing
Cardiac: Denies Chest Pain
Abdomen/GI: Reports Abdominal Pain (mild residual abd discomfort); Denies Nausea, Vomiting, Diarrhea or Constipated
Physical Exam
-
General: Well Developed, Well Nourished, No Apparent Distress and Comfortable; Negative Respiratory Distress
HEENT: Normocephalic, Atraumatic and Moist Mucous Membranes
Respiratory: Clear to Auscultation and Non Labored Respirations; Negative Wheezes, Rales, Rhonchi or Crackles
Cardiac: Regular Rhythm and S1/S2; Negative Murmur, Rub or Calf Tenderness
GI: Soft, Nondistended, Normal Bowel Sounds and Tender (minimal discomfort in LLQ)
Musculoskeletal: No Clubbing, No Cyanosis and No Edema
Skin: Warm and Dry
Neuro: Awake, Alert and Oriented
Psych: Calm
--- NOTE | 2024-07-23 19:47 | W.DCSUMMARY ---
Discharge Summary
Discharge Data
Date of Admission: 07/19/24
Date of Discharge: 07/21/24
-
Pending Results: Yes
Additional Pending Results:
Pathology results for colonoscopy biopsies
Hospital Course
Discharging Physician : Patience Blake MD., Shmuel Rodriguez MD.
Disposition : Home
Primary care physician : SHEREE Michael
Principal Discharge diagnosis : Colitis
Chronic Discharge diagnosis : Insulin-dependent diabetes mellitus (type 1), HTN, Hypercholesterolemia, history of microscopic colitis
Hospital Course :
43-year-old male with above medical history who presented with complaints of acute left lower quadrant pain with watery, mucoid, and occasionally bloody diarrhea. Outpatient stool cultures/ova and parasites showed Endolimax arlene trophozoites which
his PCP felt was unlikely to be the cause of his symptoms. He was however started on metronidazole, however symptoms progressed. In ED, HR 110, with rest of vitals stable. WBC 15.4, lipase 580 with the rest of CBC/CMP mostly unremarkable.
CT revealed diffuse colonic wall thickening continuous involvement from rectum through the inferior right colon. There was concern for infectious versus inflammatory colitis. He was started on empiric IV antibiotic Zosyn, and started on a clear
diet. After gastroenterology assessment, diet was held for colonoscopy. Colonoscopy revealed erythema, shallow ulceration, pseudopolyps and other findings as described below, concerning for inflammatory bowel disease.
Home medications were continued/modified as appropriate. Patient felt his symptoms improved since hospitalization and reported no nausea or vomiting. White count resolved. He was assessed to be stable for discharge with the following instructions:
-Continue taking 9 mg daily and follow-up with GI shortly for tapering, biopsy results and further treatment.
-Continue taking Augmentin twice daily for 7 days.
Important imaging findings :
CT abdomen/pelvis with IV contrast 07/19/2024:
- Moderate diffuse colonic wall thickening, contiguous involvement from the rectum through the inferior right colon. Findings are compatible with colitis. Main differential considerations of infectious colitis versus inflammatory bowel
disease/ulcerative colitis. Of note, this appears new compared to examination June 03, 2023.
- Prominent mesenteric lymph nodes, which are likely reactive.
- 7 mm calcification in the anterolateral left mid kidney, stable, and could represent a dystrophic parenchymal calcification versus a nephrolith. Small 1-2 mm nephrolith in the lower pole the right kidney.
- Focal area of increased density involving the superficial subcutaneous soft tissues of the right anterolateral upper pelvic wall, which appears stable from previous examination. Stability is reassuring that this is benign, possibly an area of
scarring or chronic inflammation. Please correlate with any clinical findings in this region and consider continued clinical follow-up.
Procedure findings :
Colonoscopy 07/21/2024:
- Preparation of the colon was poor.
- The examined portion of the ileum was normal. Biopsied.
- Diffuse moderate inflammation was found in the recto-sigmoid colon and in the descending colon secondary to ulcerative colitis. Biopsied.
- Diffuse mild inflammation was found in the transverse colon, in the ascending colon and in the cecum. Biopsied.
- Diverticulosis in the sigmoid colon.
Discharge Plan
-
Patient Disposition: Home (Routine Discharge)
Discharge Diagnosis/Procedures: Colitis
Condition: Good
Diet: Low Fiber and Low Residue
Activity: No restrictions
Driving Restrictions: As prior to admission
Bathing Restrictions: None
Blood Work: Await pathology results
Referrals:
Bobby Williamson PA [Family Provider] - in less than 1 week
Jami Daniels DO [Active] - in two weeks
Prescriptions:
New
budesonide 3 mg Capsule,Delayed,Extend.Release
9 mg PO DAILY 30 Days Qty: 30 0RF
amoxicillin-pot clavulanate 875-125 mg tablet
1 tab PO BID Qty: 14 0RF
Continued
lisinopril 20 mg Tablet
20 mg PO DAILY
insulin lispro [Humalog KwikPen Insulin] 100 unit/mL Insulin Pen
11 sliding scale dose SC AC
rosuvastatin [Crestor] 5 mg Tablet
5 mg PO DAILY
insulin degludec [Tresiba FlexTouch U-200] 200 unit/mL (3 mL) Insulin Pen
40 unit SC HS
loperamide 2 mg Tablet
2 mg PO Q4HPRN PRN (Reason: diarrhea)
Discontinued
metronidazole 500 mg Tablet
500 mg PO TID
Rx Instructions:
start on 07/12/24 for 10 days
Discharge Orders:
Discharge Patient (As Directed); Ordered 07/21/24
Ordered By: Patience Blake
Discharge Date and Time
Discharge Date/Time: 07/21/24 12:30
Print Language: IRISH
[2024-07-25 20:04] LABS: Calprotectin, Fecal >3000 ug/g (<=49)
== END 2024-07-21 12:30 | disposition home or self-care (01) | DRG 386 ==
LOC: 1 ACUTE 23:24
PROVIDERS: Internal Medicine; Student in an Organized Health Care Education/Training Program; ADMITTING PHYSICIAN Internal Medicine; ATTENDING PHYSICIAN Internal Medicine; CONSULT PHYSICIAN Specialist; EMERGENCY PHYSICIAN Emergency Medicine; FAMILY PHYSICIAN Physician Assistant
PROC: 0DBB8ZX Excision of Ileum, Via Natural or Artificial Opening Endoscopic, Diagnostic (ICD-10-PCS; 2024-07-21)
PROC: 0DBP8ZX Excision of Rectum, Via Natural or Artificial Opening Endoscopic, Diagnostic (ICD-10-PCS; 2024-07-21)
PROC: 0DBM8ZX Excision of Descending Colon, Via Natural or Artificial Opening Endoscopic, Diagnostic (ICD-10-PCS; 2024-07-21)
PROC: 0DBL8ZX Excision of Transverse Colon, Via Natural or Artificial Opening Endoscopic, Diagnostic (ICD-10-PCS; 2024-07-21)
PROC: 0DBN8ZX Excision of Sigmoid Colon, Via Natural or Artificial Opening Endoscopic, Diagnostic (ICD-10-PCS; 2024-07-21)
DX: K51.011 Ulcerative (chronic) pancolitis with rectal bleeding (principal); A09 Infectious gastroenteritis and colitis, unspecified; E10.9 Type 1 diabetes mellitus without complications; E78.00 Pure hypercholesterolemia, unspecified; I10 Essential (primary) hypertension; K52.838 Other microscopic colitis; N20.0 Calculus of kidney; K21.9 Gastro-esophageal reflux disease without esophagitis; K57.30 Diverticulosis of large intestine without perforation or abscess without bleeding; Z83.49 Family history of other endocrine, nutritional and metabolic diseases; Z79.4 Long term (current) use of insulin
CPT/HCPCS: 88305; 74177; 80048; 80053; 82962; 83036; 83690; 83735; 83993; 85025; 85027; 86140; 87045; 87046; 87077; 87324; 87328; 87329; 87427; 87449; 96361; 96374; 99285; Q9967

== ENCOUNTER 2024-08-12 06:26 | Day surgery (SDC) | payer OTHER, SELFPAY ==
[2024-08-12 08:03] LABS: Glucose - Point of Care 165 mg/dl (70-99)
== END 2024-08-12 10:04 | disposition home or self-care (01) ==
LOC: GI 06:26
PROVIDERS: ATTENDING PHYSICIAN Internal Medicine
DX: K44.9 Diaphragmatic hernia without obstruction or gangrene (principal); K22.2 Esophageal obstruction; K31.89 Other diseases of stomach and duodenum; R76.8 Other specified abnormal immunological findings in serum; K29.60 Other gastritis without bleeding; K90.0 Celiac disease
CPT/HCPCS: 43239; 88305; 82962; 88342